=== PATIENT | female | born 1930 | race Hispanic/Latino ===

== ENCOUNTER 2016-10-02 09:10 | Emergency (ER) | payer MEDICARE, BC ==
[2016-10-02 09:23] VITALS: TEMP 98.2
[2016-10-02 09:29] VITALS: BMI 23.6
[2016-10-02] MEDS ORDERED: Morphine 2 mg/ml ISec ONE (09:31)
[2016-10-02] MEDS ORDERED: Morphine 2 mg/ml ISec IM STA (09:32)
--- NOTE | 2016-10-02 09:59 | CT ---
PROCEDURE: CT HEAD WITHOUT CONTRAST. HISTORY: fall/head injury COMPARISON: None available. TECHNIQUE: Axial computed tomography images were obtained through the head/brain without intravenous contrast. Radiation dose: Total exam DLP = 790 mGy-cm. This CT exam was performed using one or more of the following dose reduction techniques: Automated exposure control, adjustment of the mA and/or kV according to patient size, and/or use of iterative reconstruction technique. FINDINGS: HEMORRHAGE: No intracranial hemorrhage. BRAIN: No mass effect or edema. Mild atrophy with mild chronic microvascular ischemic changes suggested. VENTRICLES: The ventricular prominence is consistent with the degree of cerebral atrophy CALVARIUM: Unremarkable. PARANASAL SINUSES: Mild mucosal thickening of the ethmoidal air cells and left sphenoid air cell MASTOID AIR CELLS: Unremarkable as visualized. No inflammatory changes. OTHER FINDINGS: None. IMPRESSION: No hemorrhage or mass effect. Chronic atrophy. Mild ethmoidal and sphenoid sinus a coastal thickening consistent with mild nonspecific inflammatory changes No significant appearing air-fluid level suggested
--- NOTE | 2016-10-02 10:16 | ED PDOC ---
Arrival/HPI - General Chief Complaint: Upper Extremity Problem/Injury Time Seen by Provider: 10/02/16 09:19 Historian: Patient - History of Present Illness Narrative History of Present Illness (Text): 10/02/16 10:13 86-year-old female with a history of dementia presents today status post fall [facility] the shelter [facility].The patient's daughter and shelter staff the patient got out of bed at night and slipped and fell landing on the right side injuring the right arm. Patient complaining of pain to the right side of the face. Denies headache. No medications have been taken for pain at home. detention records the patient had an x-ray of the right arm which showed a fracture of the humeral head. Patient is complaining of pain to the right upper arm. She denies tingling or numbness. No fevers or chills. Patient's daughter is at bedside and states that the patient is mentating as usual. 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 - Musculoskeletal/Rheumatological Hx Falls: No - Psychiatric Hx Depression: No Hx Emotional Abuse: No Hx Physical Abuse: No Hx Substance Use: No - Surgical History Hx Hysterectomy: Yes - Anesthesia Hx Anesthesia: Yes Hx Anesthesia Reactions: No Hx Malignant Hyperthermia: No - Suicidal Assessment Feels Threatened In Home Enviroment: No Family/Social History - Physician Review Nursing Documentation Reviewed: Yes Family/Social History: Unknown Family HX Smoking Status: Never Smoked Hx Alcohol Use: No Hx Substance Use: No Hx Substance Use Treatment: No Allergies/Home Meds Allergies/Adverse Reactions: Allergies iodine Allergy (Verified 10/02/16 09:29) RASH Home Medications: Home Meds Medication Instructions Recorded Confirmed Docusate [Colace] 100 mg PO DAILY 10/02/16 10/02/16 Sennosides [Senna] 8.6 mg PO HS 10/02/16 10/02/16 Review of Systems - Review of Systems Systems not reviewed;Unavailable: Dementia Eyes: absent: Eye Pain Respiratory: absent: SOB Cardiovascular: absent: Chest Pain Gastrointestinal: absent: Abdominal Pain Musculoskeletal: Arthralgias (right arm pain) Neurological: Other. absent: Headache Physical Exam Vital Signs Reviewed: Yes Vital Signs Temp Pulse Resp BP Pulse Ox 10/02/16 13:03 61 18 135/59 L 96 10/02/16 11:18 64 18 138/57 L 96 10/02/16 10:22 60 19 142/58 L 96 10/02/16 09:22 98.2 F 64 18 139/57 L 95 Temperature: Afebrile Blood Pressure: Normal Pulse: Regular Respiratory Rate: Normal Appearance: Positive for: Well-Appearing, Non-Toxic, Comfortable Pain Distress: None Mental Status: Positive for: Alert and Oriented X 3 - Systems Exam Head: Present: Tenderness (+ ttp over the right inferior orbit; + minimal edema. no erythema; no laceration, no step offs or crepitus. ), Swelling. No: Abrasion, Laceration Pupils: Present: PERRL Extroacular Muscles: Present: EOMI Conjunctiva: Present: Normal Mouth: Present: Moist Mucous Membranes Neck: Present: Other (large goiter) Respiratory/Chest: Present: Clear to Auscultation Cardiovascular: Present: Regular Rate and Rhythm Abdomen: No: Tenderness Upper Extremity: Present: NORMAL PULSES, Tenderness (right arm; + ttp over anterior shoulder/humerus; + ecchymosis; limited ROM. no crepitus.), Neurovascularly Intact, Capillary Refill < 2s. No: Normal ROM Lower Extremity: Present: Normal Inspection, NORMAL PULSES, Normal ROM, Tenderness (right hip tenderness over posterior aspect; full rom of hip; pelvis stable. ), Capillary Refill < 2 s. No: Swelling, Erythema, Deformity Neurological: Present: Speech Normal Skin: Present: Warm, Dry, Normal Color. No: Rashes Psychiatric: Present: Alert, Oriented x 3 Medical Decision Making ED Course and Treatment: 10/02/16 10:17 86-year-old female with a history of dementia. Presents status post mechanical fall last night. pt given morphine IM and zofran Odt. CT of the head: FINDINGS: HEMORRHAGE: No intracranial hemorrhage. BRAIN: No mass effect or edema. Mild atrophy with mild chronic microvascular ischemic changes suggested. VENTRICLES: The ventricular prominence is consistent with the degree of cerebral atrophy CALVARIUM: Unremarkable. PARANASAL SINUSES: Mild mucosal thickening of the ethmoidal air cells and left sphenoid air cell MASTOID AIR CELLS: Unremarkable as visualized. No inflammatory changes. OTHER FINDINGS: None. IMPRESSION: No hemorrhage or mass effect. Chronic atrophy. Mild ethmoidal and sphenoid sinus a coastal thickening consistent with mild nonspecific inflammatory changes No significant appearing air-fluid level suggested CT of the maxillofacial bones:FINDINGS: NASAL BONES: Unremarkable. ORBITS: Unremarkable. PARANASAL SINUSES/ MASTOIDS: Clear. MAXILLA: Unremarkable. MANDIBLE/ TEMPOROMANDIBULAR JOINTS: Unremarkable. SKULL BASE: Unremarkable. TEMPORAL BONES: Middle ears and mastoid grossly unremarkable. OTHER FINDINGS: There is a large soft tissue mass on the left side of the neck measuring 9 cm in diameter. There is a 3 x 6 cm mass on the right side. The left-sided mass compresses and displaces the larynx IMPRESSION: Large soft tissue mass on the left. Smaller mass on the right. Etiology uncertain. No evidence of fracture X-ray of the right humerus:IMPRESSION: Minimally displaced fracture of the humeral neck xray of the right hip; no fracture Case was discussed with Dr. Fleming; he will see patient at bedside. dr. fleming saw patient at beside; pt [facility] multiple calls placed to dr. hurtado impression; head injury, humerus fracture, hip pain follow up with dr. fleming return if symptoms worsen,persist or if new symptoms develop. - RAD Interpretation Radiology Orders: 10/02/16 09:35 HEAD W/O CONTRAST [CT] Stat MAXILLOFACIAL W/O CONTRAST [CT] Stat 10/02/16 09:37 HUMERUS RIGHT [RAD] Stat 10/02/16 11:41 Hip Right [HIP MIN 2V W/ PELVIS RT] [RAD] Stat - Medication Orders Current Medication Orders: Discontinued Medications Morphine Sulfate (Morphine) Confirm Administered Dose 2 mg .ROUTE .STK-MED ONE Stop: 10/02/16 09:32 Last Admin: 10/02/16 09:37 Dose: Morphine Sulfate (Morphine) 2 mg IM STAT STA Stop: 10/02/16 09:33 Last Admin: 10/02/16 09:36 Dose: 2 MG MAR Pain Assessment Document 10/02/16 09:36 SE (Rec: 10/02/16 09:36 SE [id number]) Pain Reassessment Is this a pain reassessment? No Sleep Is patient sleeping during reassessment? No IM Administration Charges Document 10/02/16 09:36 SE (Rec: 10/02/16 09:36 SE [id number]) Injection Site MAR Injection Site Left Arm Charges for Administration # of IM Administrations 1 Ondansetron HCl (Zofran Odt) Confirm Administered Dose 4 mg .ROUTE .STK-MED ONE Stop: 10/02/16 09:32 Last Admin: 10/02/16 09:37 Dose: Ondansetron HCl (Zofran Odt) 4 mg PO STAT STA Stop: 10/02/16 09:34 Last Admin: 10/02/16 09:36 Dose: 4 MG Disposition/Present on Arrival - Present on Arrival Any Indicators Present on Arrival: No History of DVT/PE: No History of Uncontrolled Diabetes: No Urinary Catheter: No History of Decub. Ulcer: No History Surgical Site Infection Following: None - Disposition Have Diagnosis and Disposition been Completed?: Yes Diagnosis: Fracture of humeral head, Head injury, Hip pain Disposition: TRANSF TO SNF Disposition Time: 13:33 Patient Plan: Discharge Patient Problems: Current Active Problems Problem Status Diagnosed Fracture of humeral head Acute Head injury Acute Hip pain Acute Condition: GOOD Discharge Instructions (ExitCare): Arm Fracture in Adults (ED), Head Injury (ED ) Additional Instructions: Follow up with dr. fleming return if symptoms worsen,persist or if new symptoms develop. Referrals: Thien Adames MD [Primary Care Provider] - Follow up with primary Rolando Fleming DO [Staff Provider] - Follow up with primary
--- NOTE | 2016-10-02 10:23 | CT ---
PROCEDURE: CT MAXILLOFACIAL BONES WITHOUT CONTRAST HISTORY: fall/ right facial pain COMPARISON: None TECHNIQUE: Contiguous axial CT images of the maxillofacial bones were obtained. Coronal and sagittal reformats were generated. Radiation dose: Total exam DLP = 701 mGy-cm. This CT exam was performed using one or more of the following dose reduction techniques: Automated exposure control, adjustment of the mA and/or kV according to patient size, and/or use of iterative reconstruction technique. FINDINGS: NASAL BONES: Unremarkable. ORBITS: Unremarkable. PARANASAL SINUSES/ MASTOIDS: Clear. MAXILLA: Unremarkable. MANDIBLE/ TEMPOROMANDIBULAR JOINTS: Unremarkable. SKULL BASE: Unremarkable. TEMPORAL BONES: Middle ears and mastoid grossly unremarkable. OTHER FINDINGS: There is a large soft tissue mass on the left side of the neck measuring 9 cm in diameter. There is a 3 x 6 cm mass on the right side. The left-sided mass compresses and displaces the larynx IMPRESSION: Large soft tissue mass on the left. Smaller mass on the right. Etiology uncertain. No evidence of fracture
[2016-10-02 10:25] VITALS: O2SAT 96
[2016-10-02 11:19] VITALS: RESP 18
--- NOTE | 2016-10-02 12:22 | RAD ---
PROCEDURE: Radiographs of the right humerus. HISTORY: fall/ humeral head fx COMPARISON: None. FINDINGS: BONES: There is a minimally displaced fracture of the humeral neck. SOFT TISSUES: Normal. OTHER FINDINGS: None. IMPRESSION: Minimally displaced fracture of the humeral neck
--- NOTE | 2016-10-02 12:28 | CON ---
DATE: 10/02/2016 ORTHOPEDIC CONSULT The patient is an 86-year-old female who slipped and fell at [facility] on 10/01/16, and kelley stained an injury to her right shoulder. X-rays show impacted surgical neck fracture, right humerus and with mild varus, but compatible for conservative therapy with a collar and a cuff as long as we d o not put weight on the arm, and she should be in bed with elevated head, and can get up out of bed without weight on the arm, and to go on a collar and a cuff. She has good neurovascular status, mild ecchymosis of the right arm. She also has pain in the right hip that will be addressed with an x-ray, but I am almost certain there will be no fracture. So she can go back to [facility] today if there is no fracture of the right hip, and I will follow her at [facility] of the fractured right proximal humerus, and she will have to stay in a collar and a cuff for 6 weeks. I will follow her with periodic x-rays. Rolando Fleming DO cc: [id number] TT: 10/02/2016 12:27:45 Confirmation # [id number] Dictation # [id number] dami
--- NOTE | 2016-10-02 12:52 | RAD ---
PROCEDURE: Right Hip and pelvis Radiographs. HISTORY: hip pain COMPARISON: None. FINDINGS: BONES: Normal. No fracture. JOINTS: Normal. SOFT TISSUES: Normal. OTHER FINDINGS: None. IMPRESSION: Negative study
[2016-10-02 15:03] VITALS: BP 133/61; PULSE 64
== END 2016-10-02 15:40 ==
LOC: ED 09:10
DX: S42.211A Unspecified displaced fracture of surgical neck of right humerus, initial encounter for closed fracture (principal); S09.90XA Unspecified injury of head, initial encounter; W01.0XXA Fall on same level from slipping, tripping and stumbling without subsequent striking against object, initial encounter; Y92.129 Unspecified place in nursing home as the place of occurrence of the external cause; M25.551 Pain in right hip; I10 Essential (primary) hypertension; F02.80 Dementia in other diseases classified elsewhere, unspecified severity, without behavioral disturbance, psychotic disturbance, mood disturbance, and anxiety; G30.9 Alzheimer's disease, unspecified
CPT/HCPCS: 70450; 70486; 73060; 73502; 96372; 99285; J2270

== ENCOUNTER 2017-02-12 04:18 | Emergency (ER) | payer MEDICARE, BC ==
[2017-02-12 04:19] VITALS: BMI 23.6
--- NOTE | 2017-02-12 04:30 | ED PDOC ---
Arrival/HPI - General Time Seen by Provider: 02/12/17 04:25 Historian: Patient EM Caveat: Dementia - History of Present Illness Narrative History of Present Illness (Text): 02/12/17 04:36 86 year old female, whose past medical history includes dementia, presents to the emergency department status post fall at [facility] today at approximately 2:10AM. Patient fell out of bed and landed on the back of her head. She sustained a laceration on the back of her scalp. HPI and ROS limited due patient's dementia and current state of confusion. 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 - Musculoskeletal/Rheumatological Hx Falls: No - Psychiatric Hx Depression: No Hx Emotional Abuse: No Hx Physical Abuse: No Hx Substance Use: No - Surgical History Hx Hysterectomy: Yes - Anesthesia Hx Anesthesia: Yes Hx Anesthesia Reactions: No Hx Malignant Hyperthermia: No - Suicidal Assessment Feels Threatened In Home Enviroment: No Family/Social History - Physician Review Nursing Documentation Reviewed: Yes Family/Social History: No Known Family HX Smoking Status: Never Smoked Hx Alcohol Use: No Hx Substance Use: No Hx Substance Use Treatment: No Allergies/Home Meds Allergies/Adverse Reactions: Allergies iodine Allergy (Verified 10/02/16 09:29) RASH Home Medications: Home Meds Medication Instructions Recorded Confirmed Docusate [Colace] 100 mg PO DAILY 10/02/16 02/12/17 Sennosides [Senna] 8.6 mg PO HS 10/02/16 02/12/17 Review of Systems - Physician Review All systems were reviewed & negative as marked: Yes - Review of Systems Systems not reviewed;Unavailable: Dementia Musculoskeletal: absent: Neck Pain Skin: Laceration (scalp) Physical Exam - Physical Exam Physical Exam Limitations: Altered Mental Status Vital Signs Reviewed: Yes Vital Signs Temp Pulse Resp BP Pulse Ox 02/12/17 05:22 65 16 159/54 H 99 02/12/17 04:20 97.9 F 63 20 117/59 L 97 Temperature: Afebrile Blood Pressure: Normal Pulse: Regular Respiratory Rate: Normal Appearance: Positive for: Well-Appearing Pain Distress: None Mental Status: Positive for: Confused - Systems Exam Head: Present: Normocephalic, Laceration (Laceration on the back scalp 5 cm). No: Atraumatic Pupils: Present: PERRL Extroacular Muscles: Present: EOMI Conjunctiva: Present: Normal Mouth: Present: Moist Mucous Membranes Neck: Present: Normal Range of Motion, Other (Large Goiter) Respiratory/Chest: Present: Clear to Auscultation, Good Air Exchange. No: Respiratory Distress, Accessory Muscle Use Cardiovascular: Present: Regular Rate and Rhythm, Normal S1, S2. No: Murmurs Abdomen: Present: Normal Bowel Sounds. No: Tenderness, Distention, Peritoneal Signs Back: Present: Normal Inspection Upper Extremity: Present: Normal Inspection. No: Cyanosis, Edema Lower Extremity: Present: Normal Inspection. No: Edema Neurological: Present: GCS=15, CN II-XII Intact, Speech Normal Skin: Present: Warm, Dry, Normal Color. No: Rashes Psychiatric: Present: Alert Medical Decision Making ED Course and Treatment: 02/12/17 04:36 Impression: 86 year old female present status post fall at detention. Plan: -- Head CT -- Reassess and disposition Prior Visits: Notes and results from previous visits were reviewed. On 07/04/2016 patient came in complaining of pain to the right side of face after a fall. Patient was discharged. Progress Notes: EXAM: CT Head Without Intravenous Contrast 02/12/2017 5:26 AM Dictated and Authenticated by: Hugo Mathews MD IMPRESSION: 1. No intracranial hemorrhage. 2. Nonspecific white matter changes. 3. Incidental/non-acute findings are described above. - RAD Interpretation Radiology Orders: 02/12/17 04:31 HEAD W/O CONTRAST [CT] Stat Procedure: Wound Repair - Consent Obtained Consent obtained: Verbal - Performed by Performed by: Attending Physician - Indications Indication(s):: Laceration - Location Location:: Scalp Shape:: Curvilinear Dimensions Length cm: 5 cm - Anesthetic Technique Local/Regional Anesthetic:: Lidocaine 1% - Debris Debris:: None - Complexity Complexity:: Simple (one layer) - Wound repair method Sutures:: # (19 soledad), Technique (soledad) - Muscle repiar layer closed with Muscle repair layer closed with:: Abx ointment applied, Tetanus up to date - Patient tolerated procedure Patient Tolerated Procedure:: Well - Scribe Statement The provider has reviewed the documentation as recorded by the Scribe Bettie Herring All medical record entries made by the Scribe were at my direction and personally dictated by me. I have reviewed the chart and agree that the record accurately reflects my personal performance of the history, physical exam, medical decision making, and the department course for this patient. I have also personally directed, reviewed, and agree with the discharge instructions and disposition. Disposition/Present on Arrival - Present on Arrival Any Indicators Present on Arrival: No History of DVT/PE: No History of Uncontrolled Diabetes: No Urinary Catheter: No History Surgical Site Infection Following: None - Disposition Have Diagnosis and Disposition been Completed?: Yes Diagnosis: Laceration of scalp Disposition: HOME/ ROUTINE Disposition Time: 06:20 Condition: GOOD Discharge Instructions (ExitCare): Laceration (ED)
[2017-02-12 04:31] VITALS: TEMP 97.9
[2017-02-12 05:23] VITALS: BP 159/54; RESP 16
--- NOTE | 2017-02-12 05:26 | CT ---
EXAM: CT Head Without Intravenous Contrast CLINICAL HISTORY: 86 years old, female; Injury or trauma; Fall; Initial encounter; Laceration; Consciousness not specified; Without residual foreign body; Head, generalized TECHNIQUE: Axial computed tomography images of the head/brain without intravenous contrast. All CT scans at this facility use one or more dose reduction techniques, viz.: automated exposure control; ma/kV adjustment per patient size (including targeted exams where dose is matched to indication; i.e. head); or iterative reconstruction technique. COMPARISON: CT - HEAD W/O CONTRAST 10/02/2016 9:42:26 AM FINDINGS: Brain: Moderate atrophy. No intracranial hemorrhage. No mass. Several scattered foci of decreased attenuation within periventricular/subcortical white matter. No edema. Ventricles: No hydrocephalus. Bones/joints: No acute fracture. Soft tissues: Occipital parietal soft tissue swelling. Sinuses: Mild focal mucosal thickening/mucous of LEFT sphenoid sinus. Mastoid air cells: No mastoid effusion. Orbits: Unremarkable as visualized. IMPRESSION: 1. No intracranial hemorrhage. 2. Nonspecific white matter changes. 3. Incidental/non-acute findings are described above.
[2017-02-12 07:11] VITALS: PULSE 90; O2SAT 98
== END 2017-02-12 07:30 | disposition home or self-care (01) ==
LOC: ED 04:18
DX: S01.01XA Laceration without foreign body of scalp, initial encounter (principal); W06.XXXA Fall from bed, initial encounter; Y93.89 Activity, other specified; Y92.128 Other place in nursing home as the place of occurrence of the external cause